=== PATIENT | female | born 1985 | race Caucasian/White ===

== ENCOUNTER 2019-06-06 18:54 | Inpatient (IN) | payer MEDICAID ==
[2019-06-06] MEDS ORDERED: CHLO50 PO (19:14)
[2019-06-06] MEDS ORDERED: INFLUENZA VIRUS VACCINE QVS 2019-20 (3YR+)/PF 60 MCG/0.5 ML SYRINGE IM ONE (20:45)
[2019-06-06] MEDS ORDERED: TUBERCULIN, PURIFIED PROTEIN DERIVATIVE 5 TU/0.1 ML SYRINGE ID ONE (21:00)
[2019-06-06] MEDS ORDERED: MAG HYDROX/AL HYDROX/SIMETH ES 30 ML SUSPENSION UDCUP PO PRN (21:00)
[2019-06-06] MEDS ORDERED: OLANZapine 5 MG RAPDIS TABLET PO PRN (21:00)
[2019-06-06] MEDS ORDERED: LORazepam 2 MG TABLET PO PRN (21:00)
[2019-06-06] MEDS ORDERED: ZOLPIDEM TARTRATE 10 MG TABLET PO PRN (21:00)
[2019-06-06] MEDS ORDERED: ACETAMINOPHEN 325 MG TABLET PO PRN (21:00)
[2019-06-06] MEDS ORDERED: HydrOXYzine PAMOATE 50 MG CAPSULE PO PRN (21:00)
[2019-06-06] MEDS ORDERED: PROMETHAZINE HCL 25 MG TABLET PO PRN (21:00)
[2019-06-06] MEDS: OLANZapine 5 MG RAPDIS TABLET PO SCH (21:00)
[2019-06-06] MEDS ORDERED: MAGNESIUM HYDROXIDE SUSPENSION 30 ML UDCUP PO PRN (21:00)
[2019-06-06] MEDS ORDERED: GuaiFENesin/D-METHORPHAN [SUGAR-FREE] 200-20MG/10 ML SYRUP UDCUP PO PRN (21:00)
[2019-06-06] MEDS ORDERED: LOPERAMIDE HCL 2 MG CAPSULE PO PRN (21:00)
[2019-06-06 21:08] VITALS: BP 127/77
[2019-06-06 22:13] VITALS: BP 131/77
[2019-06-07 01:03] VITALS: BP 132/62
[2019-06-07] MEDS: FOLIC ACID 1 MG TABLET PO SCH (08:31)
[2019-06-07] MEDS: THIAMINE HCL 100 MG TABLET PO SCH ×2 (08:31→17:08)
[2019-06-07] MEDS: FLUoxetine HCL 20 MG CAPSULE PO SCH (08:31)
[2019-06-07] MEDS: NALTREXONE HCL 50 MG TABLET PO SCH (08:32)
[2019-06-07] MEDS: MULTIVITAMINS WITH MINERALS, THERAPEUTIC TABLET PO SCH (08:32)
[2019-06-07 08:49] VITALS: BP 125/76
[2019-06-07] MEDS ORDERED: FLUO-191 PO (15:37)
[2019-06-07] MEDS ORDERED: OLAN5TAB30 PO (15:37)
[2019-06-07] MEDS ORDERED: NALT50TA PO (15:37)
[2019-06-07 16:24] VITALS: BP 115/76
[2019-06-07] MEDS: OLANZapine 5 MG RAPDIS TABLET PO SCH (21:00)
[2019-06-08 05:55] VITALS: BP 120/76
[2019-06-08 08:11] VITALS: BP 126/77
[2019-06-08 08:16] LABS: BASOPHILS % (AUTO) 1.1 % (0.0-2.0); EOSINOPHILS % (AUTO) 1.5 % (1.0-6.0); HEMATOCRIT 42.8 % (36-46); HEMOGLOBIN 13.7 g/dL (12.0-16.0); LYMPHOCYTES # (AUTO) 1.8 K/uL (1.0-4.8); LYMPHOCYTES % (AUTO) 32.1 % (22.0-44.0); MEAN CORPUSCULAR HEMOGLOBIN 25.7 pg (26.0-34.0); MEAN CORPUSCULAR HGB CONC 31.9 G/dL (31.0-37.0); MEAN CORPUSCULAR VOLUME 81 fL (80-100); MONOCYTES # (AUTO) 0.3 K/uL (0.1-1.0); MONOCYTES % (AUTO) 5.2 % (2.0-9.0); NEUTROPHILS # (AUTO) 3.4 K/uL (1.8-7.7); NEUTROPHILS % (AUTO) 60.1 % (40.0-70.0); PLATELET COUNT (AUTO) 371 K/uL (150-450); RED BLOOD CELL COUNT(AUTO) 5.31 MIL/uL (4.00-5.20); RED CELL DISTRIBUTION WIDTH 15.5 % (11.5-14.5)
[2019-06-08 08:39] LABS: ALANINE AMINOTRANSFERASE 56 U/L (12-78); ALKALINE PHOSPHATASE 100 U/L (46-116); ANION GAP 10 mmol/L (8-16); ASPARTATE AMINOTRANSFERASE 30 U/L (15-37); BILIRUBIN,TOTAL 0.3 mg/dL (0.1-1.0); CALCIUM, TOTAL 9.8 mg/dL (8.8-10.5); CARBON DIOXIDE 27 mmol/L (22-29); CHLORIDE 102 mmol/L (98-107); CHOL/HDL RATIO 2.4 (3.9-5.7); CHOLESTEROL 224 mg/dL (131-200); GLOMERULAR FILTR. RATE CALC > 60 mL/min (>60); GLUCOSE,RANDOM 105 mg/dL (70-110); HCG,QUANTITATIVE 1 mIU/mL (0-6); HDL CHOLESTEROL 94 mg/dL (40-60); HEMOGLOBIN A1C 5.5 % (3.8-5.6); LDL CHOL (CALC.) 103 mg/dL (0-130); POTASSIUM 4.1 mmol/L (3.5-5.1); SODIUM SERUM 139 mmol/L (136-145); THYROID STIMULATING HORMONE 0.08 uIU/mL (0.36-3.74); TOTAL PROTEIN, SERUM 7.9 g/dL (6.4-8.2); TRIGLYCERIDES 134 mg/dL (15-150); UREA NITROGEN, BLOOD 17 mg/dL (7-18)
[2019-06-08] MEDS: FLUoxetine HCL 20 MG CAPSULE PO SCH (09:07)
[2019-06-08] MEDS: NALTREXONE HCL 50 MG TABLET PO SCH (09:08)
[2019-06-08] MEDS: MULTIVITAMINS WITH MINERALS, THERAPEUTIC TABLET PO SCH (09:08)
[2019-06-08] MEDS: THIAMINE HCL 100 MG TABLET PO SCH (09:08)
[2019-06-08] MEDS: FOLIC ACID 1 MG TABLET PO SCH (09:08)
== END 2019-06-08 10:12 | disposition home or self-care (01) | DRG 750 ==
LOC: B2S 20:44
PROVIDERS: ADMIT Psychiatry & Neurology Psychiatry; ATTEND Psychiatry & Neurology Psychiatry
DX: F25.9 Schizoaffective disorder, unspecified (principal); Z91.19 Patient's noncompliance with other medical treatment and regimen; Z91.5 Personal history of self-harm
CPT/HCPCS: 83036; 84439; 84443; 86592